=== PATIENT | male | born 1975 ===

== ENCOUNTER 2018-08-22 22:32 | Emergency (ER) | payer MEDICAID ==
[2018-08-22 22:32] VITALS: BMI 38.0
[2018-08-22 22:46] VITALS: BP 108/74; PULSE 82; RESP 20; TEMP 98.4; O2SAT 98
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
--- NOTE | 2018-08-23 15:35 | RAD ---
Date of service: 08/22/2018 PROCEDURE: Right Knee Radiographs. HISTORY: injury COMPARISON: None. TECHNIQUE: 2 views obtained. FINDINGS: BONES: Normal. No fracture. JOINTS: Normal. No osteoarthritis. JOINT EFFUSION: Small suprapatellar joint effusion. OTHER FINDINGS: None. IMPRESSION: No acute fractures. Small suprapatella joint effusion.
== END 2018-08-22 23:23 | disposition home or self-care (01) ==
LOC: C.ER 22:32
DX: S83.91XA Sprain of unspecified site of right knee, initial encounter (principal); V19.3XXA Pedal cyclist (driver) (passenger) injured in unspecified nontraffic accident, initial encounter; Y93.55 Activity, bike riding